=== PATIENT | female | born 1995 | race African-American/Black ===

== ENCOUNTER 2016-10-18 17:05 | Emergency (ER) | payer OTHER, BC ==
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
[~2016-10-18 17:05] MED LIST: NO MEDICATIONS; ROBAXIN500 MG PO; VOLTAREN75 MG PO
[2016-10-18] MEDS ORDERED: VOLTAREN50 MG PO (18:28)
== END 2016-10-18 18:25 | disposition home or self-care (01) ==
LOC: SED 17:05
DX: S50.12XA Contusion of left forearm, initial encounter (principal); S80.02XA Contusion of left knee, initial encounter; S60.212A Contusion of left wrist, initial encounter; I10 Essential (primary) hypertension; I25.2 Old myocardial infarction; V43.52XA Car driver injured in collision with other type car in traffic accident, initial encounter; Y92.410 Unspecified street and highway as the place of occurrence of the external cause
CPT/HCPCS: 73090; 73100; 73560; 99284; J1200; J1885; J2765